=== PATIENT | male | born 1970 | race African-American/Black ===

== ENCOUNTER 2018-08-06 19:13 | Inpatient (IN) | payer OTHER ==
[~2018-08-06] VITALS: Ht 190.5 cm; Wt 72.1 kg
[2018-08-06] MEDS ORDERED: IV NS 0.9% 500 ML BAG IV ONE (19:30)
--- NOTE | 2018-08-06 19:31 | NUR ---
SUNNY FUENTES FROM BOARD AND CARE. BROUGHT IN D/T PT THOUGHT TO HAVE A CARDIAC ARREST AT THE [facility]. PER REPORT PT WAS FOUND UNRESPONSIVE AND PULSELESS BY [facility] STAFF. UPON EMS ARRIVAL [facility] STAFF WAS PERFORMING CPR. EMS REPORTS THAT PT WAS AWAKE AND RESISTING STAFF. BS WAS REPORTED AT 183 AT SCENE. PT WAS DISORIENTED AND LETHARGIC. UPON PRESENTATION PT IS SLEEPING ESILY ARROUSABLE AND RESPONDS TOS VERBAL AND TACILE STIMULI. HE AAOX3. NO SOB, BREATHING EVEN AND UNLABORED. PT DOES NOT RECAL WHAT HAPPENED TO HIM PRIOR TO GETTING HERE. BS IS 117 UPON ASSESSMENT. VSS. -N/V/D. CHEST DISCOMFORT FROM S/P CHEST COMPRESSION. TO ER BED 9.
--- NOTE | 2018-08-06 19:40 | NUR ---
BLOOD DRAWN DYNAMIC ETCHING PROCESSOR
[2018-08-06 19:44] LABS: BASOPHILS % (AUTO) 0.9 % (0.0-2.0); HEMATOCRIT 25 % (39-51); HEMOGLOBIN 8.2 g/dL (13.5-17.5); LYMPHOCYTES # (AUTO) 2.1 /CMM (0.8-4.8); LYMPHOCYTES % (AUTO) 52.4 % (20.0-44.0); MEAN CORPUSCULAR HGB CONC 33 g/dl (31.0-36.0); MEAN CORPUSCULAR VOLUME 91 fL (80-96); MONOCYTES # (AUTO) 0.5 /CMM (0.1-1.30); MONOCYTES % (AUTO) 12.2 % (2.0-12.0); NEUTROPHILS # (AUTO) 1.3 /CMM (1.8-8.9); NEUTROPHILS % (AUTO) 31.5 % (43.0-81.0); PLATELET COUNT (AUTO) 479 /CMM (150-450); RED BLOOD CELL COUNT(AUTO) 2.74 MIL/uL (4.5-6.0); WHITE BLOOD COUNT (AUTO) 4.1 K/uL (4.3-11.0)
--- NOTE | 2018-08-06 19:48 | NUR ---
EKG AT BEDSIDE
[2018-08-06] MEDS ORDERED: THIA100V2 IJ (20:03)
[2018-08-06] MEDS ORDERED: QUET25TA PO (20:04)
[2018-08-06] MEDS ORDERED: TYL2T MC (20:04)
[2018-08-06] MEDS ORDERED: QUET50TA PO (20:04)
[2018-08-06] MEDS ORDERED: QUET100T PO ×3 (20:05→20:06)
[2018-08-06] MEDS ORDERED: INSU100I14 SQ (20:07)
[2018-08-06] MEDS ORDERED: ENOX40DI SQ (20:08)
[2018-08-06] MEDS ORDERED: MIRT-73 PO (20:09)
[2018-08-06] MEDS ORDERED: ENOX60DI SQ (20:10)
--- NOTE | 2018-08-06 20:10 | NUR ---
NO NEURO DEFICIT NOTED
[2018-08-06 20:11] LABS: ALANINE AMINOTRANSFERASE 19 U/L (12-78); ALBUMIN 1.9 g/dL (3.4-5.0); ALKALINE PHOSPHATASE 139 U/L (46-116); ASPARTATE AMINOTRANSFERASE 18 U/L (15-37); BILIRUBIN,TOTAL 0.1 mg/dL (0.2-1.0); CALCIUM, SERUM 6.9 mg/dL (8.5-10.1); CARBON DIOXIDE 18 mmol/L (21-32); CHLORIDE 108 mmol/L (98-107); CREATININE 1.3 mg/dL (0.6-1.3); GLUCOSE 125 mg/dL (74-106); POTASSIUM 5.2 mmol/L (3.5-5.1); SODIUM SERUM 138 mmol/L (136-145); TOTAL PROTEIN, SERUM 5.6 g/dL (6.4-8.2); UREA NITROGEN, BLOOD 7 mg/dL (7-18)
--- NOTE | 2018-08-06 21:45 | NUR ---
BED 102
--- NOTE | 2018-08-06 21:57 | NUR ---
REPORT GIVEN TO GAMA BAEZ FOR JESUSITA
--- NOTE | 2018-08-06 22:15 | NUR ---
PT TRANSPORTED TO UNIT WITH EMT AND RN AT BEDSIDE W/ ACLS PROTOCOL. NAD NOTED WHILE BEING TRANSPORTED.
[2018-08-06] MEDS ORDERED: MAG HYDROX/AL HYDROX/SIMETH 30 ML UDC PO PRN (22:30)
[2018-08-06] MEDS ORDERED: ZOLPIDEM TARTRATE 5 MG TABLET PO PRN (22:30)
[2018-08-06] MEDS ORDERED: ACETAMINOPHEN 325 MG TABLET PO PRN (22:30)
[2018-08-06] MEDS ORDERED: ONDANSETRON HCL/PF 4 MG/2 ML VIAL IVP PRN (22:30)
[2018-08-06 22:32] VITALS: BP 105/68
[2018-08-06] MEDS: IV NS 0.9% 1,000 ML IV PRN (23:34)
[2018-08-07] VITALS: BP 105/71
[2018-08-07] MEDS: HYDROCODONE/APAP 5/325MG 1 EACH TABLET PO PRN (01:44)
[2018-08-07 04:00] VITALS: BP 95/61
[2018-08-07] MEDS: QUETIAPINE FUMARATE 100 MG TABLET PO SCH ×2 (04:09→21:19)
--- NOTE | 2018-08-07 05:43 | NUR ---
RN NOTES ADMITTED PATIENT ON A STRETCHER FROM ER WITH NO APPARENT DISTRESS. BREATHING EVEN AND UNLABORED. ROOM AIR TOLERATING WELL. ALERT AND ORIENTED. VITAL SIGNS TAKEN WNL. VERBALLY ABLE TO COMMUNICATE NEEDS. COMPLAINED OF CHEST PAIN, NORCO GIVEN WITH RELIEF. KEPT CLEAN AND DRY. WILL ENDORSE TO NEXT SHIFT FOR CONTINUITY OF CARE.
[2018-08-07 06:48] LABS: BASOPHILS % (AUTO) 0.9 % (0.0-2.0); EOSINOPHILS % (AUTO) 2.8 % (0.0-6.0); HEMATOCRIT 25 % (39-51); HEMOGLOBIN 8.5 g/dL (13.5-17.5); LYMPHOCYTES % (AUTO) 42.8 % (20.0-44.0); MEAN CORPUSCULAR HGB CONC 34 g/dl (31.0-36.0); MEAN CORPUSCULAR VOLUME 90 fL (80-96); MONOCYTES # (AUTO) 0.5 /CMM (0.1-1.30); MONOCYTES % (AUTO) 10.7 % (2.0-12.0); NEUTROPHILS % (AUTO) 42.8 % (43.0-81.0); PLATELET COUNT (AUTO) 480 /CMM (150-450); RED BLOOD CELL COUNT(AUTO) 2.82 MIL/uL (4.5-6.0); WHITE BLOOD COUNT (AUTO) 4.6 K/uL (4.3-11.0)
[2018-08-07 07:02] LABS: CALCIUM, SERUM 8.2 mg/dL (8.5-10.1); CREATININE 1.1 mg/dL (0.6-1.3); PHOSPHORUS 4.2 mg/dL (2.5-4.9); POTASSIUM 5.3 mmol/L (3.5-5.1)
[2018-08-07 07:14] LABS: MAGNESIUM 1.2 mg/dL (1.8-2.4)
--- NOTE | 2018-08-07 07:30 | NUR ---
RN NOTES RECEIVED PATIENT IN BED, A/A/OX4, ABLE TO MAKE NEEDS KNOWN. ON ROOM AIR, BREATHING UNLABOR, SATING WELL. SINUS RHYTHM ON THE MONITOR WITH HR ON THE 90'S. NO COMPLAINTS OF CHEST PAIN BUT WITH COMPLAINTS OF PAIN ON THE RIGHT ARM: PATIENT VERBALIZED- HE IS ABLE TO TOLERATE AT THIS TIME, ABLE TO MOVE ARM BILATERALLY, MUSCLE STRENGTH 5/5. PATIENT ENCOURAGE TO CALL FOR HELP/ ASSISTANCE. CALL LIGHT PLACED WITHIN REACH. SAFETY MEASURES OBSERVED AND MAINTAINED, BED LOW AND LOCKED POSITIONED. WILL CONTINUE TO ANTICIPATE NEEDS AND MONITOR ACCORDINGLY
[2018-08-07 08:00] VITALS: BP 98/63
--- NOTE | 2018-08-07 08:15 | NUR ---
IV SITE ON THE LFA G [address] INTACT[address] PATENT ON FLUSHING. DRESSING C/D/I. WITH ONGOING IVF OF NS AT 75CC/HR
[2018-08-07] MEDS ORDERED: SODIUM POLYSTYRENE SULFONATE 15 G/60 ML BOTTLE PO ONE (08:30)
[2018-08-07] MEDS: MIRTAZAPINE SOLUTAB 15 MG/UDTABLET TAB.RAPDIS PO SCH (08:37)
[2018-08-07] MEDS: Magnesium 1GM/D5W 100ML PREMIX 100 ML IV SCH ×4 (09:50→13:26)
[2018-08-07 12:00] VITALS: BP_SYST 110; BP_SYST 115; BP_DIAS 68; BP_DIAS 72
[2018-08-07 16:00] VITALS: BP_SYST 110; BP_SYST 115; BP_DIAS 68; BP_DIAS 72
[2018-08-07] MEDS: IV NS 0.9% 1,000 ML IV PRN (17:31)
--- NOTE | 2018-08-07 19:16 | NUR ---
TELE/RN ENTRY NOTES RECEIVED PATIENT IN BED, RESTING COMFORTABLY AT THIS TIME, RESPIRATION EVEN AND UNLABORED. NO SOB NOTED. PATIENT ON RA SATURATING 97% AT THIS TIME. PATIENT A/O X4, ABLE TO MAKE NEEDS KNOWN, DENIES ANY PAIN OR DISCOMFORT AT THIS TIME. IV SITE ON LFA NOTED WITH NO S/S OF INFECTION/ INFILTRATION, RUNNING WITH NS @75CC/HR. PATIENT ON TELE MONITOR WITH SR 99. SAFETY MAINTAINED. BED AT THE LOWEST POSITION, LOCKED. CALL LIGHT WITHIN REACH. WILL CONTINUE TO MONITOR PATIENT CONDITION PER PLAN OF CARE.
--- NOTE | 2018-08-07 19:26 | NUR ---
RN NOTES ENDORSED FOR CONTINUITY OF CARE. NO ACUTE CHANGES WITHIN THE SHIFT. NOT ON ANY FORM OF DISTRESS. ALL NURSING NEEDS ATTENDED AND MET. SAFETY MEASURES IN PLACE AT ALL TIMES. CALL LIGHT WITHIN REACH
[2018-08-07 20:00] VITALS: BP 101/59
[2018-08-08] VITALS: BP 105/56
[2018-08-08 04:00] VITALS: BP 107/65
[2018-08-08] MEDS: HYDROCODONE/APAP 5/325MG 1 EACH TABLET PO PRN (06:07)
--- NOTE | 2018-08-08 06:24 | NUR ---
TELE/RN ENTRY NOTES PATIENT IN BED RESTING COMFORTABLY AT THIS TIME, NO S/S OF ACUTE DISTRESS NOTED. RESPIRATION EVEN AND UNLABORED. NO SOB NOTED. PATIENT ON RA SATURATING 98%. PATIENT C/O OF RIGHT SHOULDER PAIN, PRN PAIN MEDICATION GIVEN ORDERED WITH EFFECTIVENESS. IV SITE ON LFA NOTED WITH NO S/S OF INFECTION/ INFILTRATION, RUNNING WITH NS @75CC/HR. PATIENT ON TELE MONITOR WITH SR 82. NO SIGNIFICANT CHANGE IN CONDITION NOTED IN THIS SHIFT. SAFETY MAINTAINED. BED AT THE LOWEST POSITION, LOCKED. CALL LIGHT WITHIN REACH. WILL ENDORSE TO THE AM SHIFT NURSE FOR JESUSITA.
--- NOTE | 2018-08-08 07:30 | NUR ---
RN NOTES HOSPITALIST WITH ORDER FOR KAYEXELATE AND MAGNESIUM 4 GRAS BUT NO LAB RECHECK SCHEDULE FOR TODAY. LAB RESULTS WERE FORM YESTERDAY, PAGED AUDIOLOGY ASSISTANT FOR LAB ORDERS. Addendum: 08/08/18 at 1625 by MISAEL BORREGO RN KAYEXALATE AND 3 MORE BAGS OF MAGNESIUM HELD AT THIS TIME
--- NOTE | 2018-08-08 07:30 | NUR ---
RN NOTES RECEIVED PATIENT IN BED, ON SITTING POSITION, A/A/O X4, NOT ON ANY FORM OF DISTRESS. NO COMPLAINTS OF PAIN. SAFETY MEASURES OBSERVED AND MAINTAINED. CALL LIGHT WITHIN REACH. WILL DO ROOM VISITS RANDOMLY AND ACCORDINGLY. WILL CONTINUE TO MONITOR AND ANTICIPATE NEEDS ACCORDINGLY
[2018-08-08 08:00] VITALS: BP 98/60
[2018-08-08] MEDS ORDERED: SODIUM POLYSTYRENE SULFONATE 15 G/60 ML BOTTLE PO ONE (08:00)
[2018-08-08] MEDS: Magnesium 1GM/D5W 100ML PREMIX 100 ML IV SCH ×4 (08:02→15:05)
[2018-08-08] MEDS: MIRTAZAPINE SOLUTAB 15 MG/UDTABLET TAB.RAPDIS PO SCH (09:18)
[2018-08-08] MEDS: IV NS 0.9% 1,000 ML IV PRN (10:36)
[2018-08-08 11:00] LABS: CALCIUM, SERUM 8.4 mg/dL (8.5-10.1); CREATININE 1.1 mg/dL (0.6-1.3); MAGNESIUM 1.7 mg/dL (1.8-2.4); POTASSIUM 4.7 mmol/L (3.5-5.1)
--- NOTE | 2018-08-08 11:20 | NUR ---
RN NOTES SEN AND EXAMINED BY [facility]. WITH ORDERS FOR DISCHARGE. PATIENT MADE AWARE OF THE PLAN. ALL QUESTIONS AND CONCERNS ADDRESSED APPROPRIATELY. ALL DISCHARGE AND MEDICATION INSTRUCTIONS GIVEN TO PATIENT. PATIENT REFUSED PNEUMONIA VACCINE. SKIN ASSESSMENT DONE, NO NEW SKIN ISSUES NOTED. ALL BELONGING ACCOUNTED FOR AND RETURNED TO THE PATIENT. WILL CONTINUE TO MONITO AND ANTICIPATE NEEDS WHILE PATIENT AWAITING TRANSPORT TEAM
[2018-08-08] MEDS ORDERED: IV NS 0.9% 500 ML BAG IV ONE (11:30)
[2018-08-08 12:00] VITALS: BP_SYST 101; BP_SYST 109; BP_DIAS 53; BP_DIAS 68
[2018-08-08] MEDS ORDERED: IV NS 0.9% 500 ML IV ONE (12:00)
--- NOTE | 2018-08-08 12:00 | NUR ---
RN NOTES ORDERS FOR LABORATORY TEST OBTAINED.
--- NOTE | 2018-08-08 14:00 | NUR ---
RN NOTES CALLED [facility] TO GIVE REPORT FOR CONTINUITY OF CARE, SPOKE TO SANKET
[2018-08-08 16:00] VITALS: BP 98/62
--- NOTE | 2018-08-08 16:00 | NUR ---
RN NOTES REMAINING 3 BAGS OF MAGNESIUM ALL ADMINISTERED ART THIS TIME. KAYEXALATE NOT GIVEN DUE TO POTASSIUM LEVEL WITHIN NORMAL LIMIT
--- NOTE | 2018-08-08 16:25 | NUR ---
RN NOTES PATIENT WHEELED OUT OF THE UNIT VIA GURNEY BY 2 EMT. ID BAND AND IV ACCESS REMOVED. ALL QUESTION AD CONCERNS ADDRESSED APPROPRIATELY.
== END 2018-08-08 16:25 | DRG 640 ==
LOC: ER 19:20 → TELE1 21:56
PROVIDERS: ADMIT Nurse Practitioner Acute Care; ATTEND Nurse Practitioner Acute Care
DX: E86.0 Dehydration (principal); E43 Unspecified severe protein-calorie malnutrition; Z68.1 Body mass index [BMI] 19.9 or less, adult; E83.42 Hypomagnesemia; E87.5 Hyperkalemia; D63.8 Anemia in other chronic diseases classified elsewhere; Z79.4 Long term (current) use of insulin; F31.9 Bipolar disorder, unspecified; F20.9 Schizophrenia, unspecified; E11.65 Type 2 diabetes mellitus with hyperglycemia; E88.09 Other disorders of plasma-protein metabolism, not elsewhere classified; D72.819 Decreased white blood cell count, unspecified; D47.3 Essential (hemorrhagic) thrombocythemia
CPT/HCPCS: 36415; 71045-TC; 80048-TC; 80061-TC; 80076-TC; 82962-TC; 83735-TC; 84100-TC; 84484-TC; 85025-TC; 85730-TC; 87081-TC; 87806; 93307-TC; G0378; J3475; J7030; J7040